=== PATIENT | male | born 1955 | race Two or more races ===

== ENCOUNTER 2017-12-12 01:05 | Emergency (ER) | payer MEDICAID ==
[~2017-12-12] VITALS: Ht 160 cm; Wt 61.4 kg
[2017-12-12 01:53] LABS: INFLUENZA TYPE A NEGATIVE FOR TYPE A (NEGATIVE); INFLUENZA TYPE B NEGATIVE FOR TYPE B (NEGATIVE)
[2017-12-12] MEDS ORDERED: AZITHROMYCIN 250 MG TABLET PO ONE (03:00)
[2017-12-12 03:20] VITALS: BP 129/81
== END 2017-12-12 03:21 | disposition home or self-care (01) ==
LOC: EMS 01:06
DX: J18.0 Bronchopneumonia, unspecified organism (principal); J02.9 Acute pharyngitis, unspecified
CPT/HCPCS: 71046; 87804; 99285